=== PATIENT | male | born 1990 | race Asian ===

== ENCOUNTER 2019-11-26 01:39 | Emergency (ER) | payer BC ==
[~2019-11-26] VITALS: Ht 152.4 cm; Wt 59.0 kg
[2019-11-26 01:51] VITALS: Ht 152.4 cm; Wt 59.0 kg
[2019-11-26 06:21] VITALS: BP 104/63
== END 2019-11-26 06:21 | disposition home or self-care (01) ==
LOC: ED 01:39
DX: F10.129 Alcohol abuse with intoxication, unspecified (principal); Y90.9 Presence of alcohol in blood, level not specified